=== PATIENT | male | born 1965 | race Caucasian/White ===

== ENCOUNTER → 2017-02-03 | Outpatient (CLI) | payer MEDICAID ==
[~2017-02-03] MED LIST: GADOXETATE DISODIUM 2.5 MMOL/10 ML ONE
== END | disposition home or self-care (01) ==
LOC: CFH 14:51
PROVIDERS: ATTEND Physician Assistant
DX: R16.0 Hepatomegaly, not elsewhere classified (principal); N28.1 Cyst of kidney, acquired; K76.9 Liver disease, unspecified
CPT/HCPCS: 74183; 82565; A9581